=== PATIENT | female | born 2005 | race Caucasian/White ===

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

== ENCOUNTER 2024-04-24 16:00 | Emergency (ER) | payer OTHER ==
[~2024-04-24] VITALS: Ht 154.9 cm; Wt 5.0 kg
[2024-04-24 17:45] LABS: BASOPHILS ABSOLUTE AUTO 0.08 K/mm3 (0.00-0.23); BASOPHILS PERCENT AUTO 1 % (0-2); EOSINOPHILS ABSOLUTE AUTO 0.21 K/mm3 (0.00-0.68); EOSINOPHILS PERCENT AUTO 2 % (0-6); Hematocrit 39.6 % (33.0-51.0); Hemoglobin 13.5 g/dL (11.5-16.0); IMMATURE GRAN ABSOLUTE AUTO 0.02 K/mm3 (0.00-0.10); IMMATURE GRAN PERCENT AUTO 0 % (0-1); LYMPHOCYTES ABSOLUTE AUTO 2.61 K/mm3 (0.84-5.20); LYMPHOCYTES PERCENT AUTO 29 % (21-46); MONOCYTES ABSOLUTE AUTO 0.42 K/mm3 (0.16-1.47); MONOCYTES PERCENT AUTO 5 % (4-13); Mean Corpuscular HGB 29.3 pg (26.0-34.0); Mean Corpuscular HGB Conc 34.1 g/dL (31.5-36.5); Mean Corpuscular Volume 86 fL (80-100); Mean Platelet Volume 10.2 fL (9.1-12.4); NEUTROPHILS ABSOLUTE AUTO 5.71 K/mm3 (1.96-9.15); NEUTROPHILS PERCENT AUTO 63 % (41-73); Platelet Count 290 K/mm3 (150-400); RDW Coefficient Variation 11.5 % (11.7-14.2); RDW Standard Deviation 35.8 fL (35.1-46.3); Red Blood Cell Count 4.61 M/mm3 (3.80-5.20); White Blood Cell Count 9.05 K/mm3 (4.00-11.30)
[2024-04-24 18:15] LABS: Albumin, Blood 3.8 g/dL (3.4-5.0); Albumin/Globulin Ratio 0.9 (0.8-1.8); Bilirubin, Total 0.2 mg/dL (0.1-1.0); Creatinine, Blood 0.67 mg/dL (0.40-1.00); Globulin, Blood 4.3 g/dL (2.2-4.0); Magnesium, Blood 2.2 mg/dL (1.6-2.4); Potassium, Blood 3.6 mmol/L (3.5-5.5); Total Protein, Blood 8.1 g/dL (6.4-8.2)
[2024-04-24 20:03] VITALS: BP 121/87
[2024-04-24] MEDS ORDERED: HyDROXyzine HCl 25 MG Tab PO ONE (20:25)
[2024-04-24] MEDS ORDERED: HYDHCL25 PO (20:25)
== END 2024-04-24 20:40 | disposition home or self-care (01) ==
LOC: ER 16:00
PROVIDERS: Physician Assistant
DX: F44.5 Conversion disorder with seizures or convulsions (principal); F41.1 Generalized anxiety disorder; F41.0 Panic disorder [episodic paroxysmal anxiety]; J45.909 Unspecified asthma, uncomplicated; F17.200 Nicotine dependence, unspecified, uncomplicated
CPT/HCPCS: 80053; 83735; 84703; 85025; A9270

== ENCOUNTER 2025-03-16 01:09 | Emergency (ER) | payer OTHER ==
[~2025-03-16] VITALS: Ht 154.9 cm; Wt 56.7 kg
[~2025-03-16 01:09] MED LIST changes: +HYDHCL25 PO
[2025-03-16 01:33] LABS: Source, Urine Clean Catch
[2025-03-16 01:38] LABS: Bilirubin, Urine Neg (Neg); Color, Urine Yellow (P-Yellow); Glucose Qualitative, Urine Neg (Neg); Ketones, Urine 3+ (Neg); Leukocyte Esterase, Urine 3+ (Neg); Protein, Urine 2+ (Neg); Specific Gravity, Urine 1.025 (1.003-1.022); Urobilinogen, Urine NORM (Normal)
[2025-03-16 01:53] LABS: White Blood Cells, Urine TNTC /hpf (0-5)
[2025-03-16 02:10] LABS: BASOPHILS ABSOLUTE AUTO 0.07 K/mm3 (0.00-0.23); BASOPHILS PERCENT AUTO 1 % (0-2); EOSINOPHILS ABSOLUTE AUTO 0.15 K/mm3 (0.00-0.68); EOSINOPHILS PERCENT AUTO 2 % (0-6); Hematocrit 39.2 % (33.0-51.0); Hemoglobin 12.9 g/dL (11.5-16.0); IMMATURE GRAN ABSOLUTE AUTO 0.02 K/mm3 (0.00-0.10); IMMATURE GRAN PERCENT AUTO 0 % (0-1); LYMPHOCYTES ABSOLUTE AUTO 2.46 K/mm3 (0.84-5.20); LYMPHOCYTES PERCENT AUTO 26 % (21-46); MONOCYTES ABSOLUTE AUTO 0.54 K/mm3 (0.16-1.47); MONOCYTES PERCENT AUTO 6 % (4-13); Mean Corpuscular HGB Conc 32.9 g/dL (31.5-36.5); Mean Corpuscular Volume 89 fL (80-100); NEUTROPHILS ABSOLUTE AUTO 6.11 K/mm3 (1.96-9.15); NEUTROPHILS PERCENT AUTO 65 % (41-73); NRBC ABSOLUTE 0.00 K/mm3 (0.00-0.02); NRBC Auto 0.0 /100 WBC (0.0-0.2); Platelet Count 312 K/mm3 (150-400); RDW Coefficient Variation 12.1 % (11.7-14.2); RDW Standard Deviation 39.2 fL (35.1-46.3)
[2025-03-16 02:16] LABS: Alanine Aminotransfer (ALT/SGP 23.0 U/L (12-78); Albumin, Blood 3.6 g/dL (3.4-5.0); Albumin/Globulin Ratio 0.9 (0.8-1.8); Anion Gap 7.0 mmol/L (3-11); Aspartate Aminotrans (AST/SGOT 13.0 U/L (12-37); Bilirubin, Total 0.2 mg/dL (0.1-1.0); Blood Urea Nitrogen 4.0 mg/dL (8-24); CO2, Blood 28.0 mmol/L (21-32); Calcium, Blood 8.6 mg/dL (8.5-10.1); Chloride, Blood 107.0 mmol/L (98-108); Creatinine, Blood 0.57 mg/dL (0.40-1.00); Globulin, Blood 4.0 g/dL (2.2-4.0); Glucose, Blood 117.0 mg/dL (70-99); Potassium, Blood 2.9 mmol/L (3.5-5.5); Sodium, Blood 139.0 mmol/L (136-145); Total Protein, Blood 7.6 g/dL (6.4-8.2)
[2025-03-16] MEDS ORDERED: CEPH500 PO (02:33)
[2025-03-16 02:54] VITALS: BP 110/71
== END 2025-03-16 02:56 | disposition home or self-care (01) ==
LOC: ER 01:09
PROVIDERS: Emergency Medicine
DX: N39.0 Urinary tract infection, site not specified (principal); E87.6 Hypokalemia; J45.909 Unspecified asthma, uncomplicated; F17.200 Nicotine dependence, unspecified, uncomplicated
CPT/HCPCS: 80053; 81001; 81025; 85025; 99283; A9270

== ENCOUNTER 2025-03-18 21:24 | Emergency (ER) | payer OTHER ==
[~2025-03-18] VITALS: Ht 154.9 cm; Wt 56.7 kg
[~2025-03-18 21:24] MED LIST changes: +CEPH500 PO
[2025-03-18 22:00] VITALS: BP 109/731
== END 2025-03-18 22:43 | disposition home or self-care (01) ==
LOC: ER 21:24
DX: S50.02XA Contusion of left elbow, initial encounter (principal); W22.8XXA Striking against or struck by other objects, initial encounter
CPT/HCPCS: 73080; 99283-25

== ENCOUNTER 2025-03-25 00:08 | Emergency (ER) | payer OTHER ==
[~2025-03-25] VITALS: Ht 154.9 cm; Wt 56.7 kg
[2025-03-25 01:20] VITALS: BP 112/79
[2025-03-25] MEDS ORDERED: Prozac20 MG PO (01:22)
[2025-03-25 01:29] LABS: Source, Urine Clean Catch
[2025-03-25 01:31] LABS: Bilirubin, Urine Neg (Neg); Glucose Qualitative, Urine Neg (Neg); Ketones, Urine 2+ (Neg); Leukocyte Esterase, Urine 3+ (Neg); Protein, Urine 2+ (Neg); Specific Gravity, Urine 1.020 (1.003-1.022); Urobilinogen, Urine NORM (Normal)
[2025-03-25 01:35] LABS: Color, Urine Yellow (P-Yellow)
[2025-03-25 01:39] LABS: White Blood Cells, Urine TNTC /hpf (0-5)
[2025-03-25] MEDS ORDERED: ONDA4ODT MM (02:08)
[2025-03-25] MEDS ORDERED: PHENA200 PO (02:08)
[2025-03-25] MEDS ORDERED: SULTRIDS PO (02:08)
[2025-03-25] MEDS ORDERED: ONDA4 PO (02:08)
[2025-03-25] MEDS ORDERED: Trimethoprim/Sulfamethoxazole DS Tab PO ONE (02:10)
== END 2025-03-25 02:31 | disposition home or self-care (01) ==
LOC: ER 00:08
PROVIDERS: Student in an Organized Health Care Education/Training Program
DX: N39.0 Urinary tract infection, site not specified (principal); J45.909 Unspecified asthma, uncomplicated; Z88.8 Allergy status to other drugs, medicaments and biological substances; F17.200 Nicotine dependence, unspecified, uncomplicated
CPT/HCPCS: 81001; 81025; 87086; 99283; A9270

== ENCOUNTER 2025-04-17 00:23 | Emergency (ER) | payer OTHER ==
[~2025-04-17] VITALS: Ht 154.9 cm; Wt 54.4 kg
[~2025-04-17 00:23] MED LIST changes: +ONDA4 PO; +ONDA4ODT MM; +Prozac20 MG PO
[2025-04-17 01:09] VITALS: BP 114/77
== END 2025-04-17 02:30 | disposition home or self-care (01) ==
LOC: ER 00:23
DX: S60.021A Contusion of right index finger without damage to nail, initial encounter (principal); S60.041A Contusion of right ring finger without damage to nail, initial encounter; S60.051A Contusion of right little finger without damage to nail, initial encounter; W22.8XXA Striking against or struck by other objects, initial encounter; J45.909 Unspecified asthma, uncomplicated; Z79.899 Other long term (current) drug therapy; F17.200 Nicotine dependence, unspecified, uncomplicated
CPT/HCPCS: 73130; 99283-25

== ENCOUNTER 2025-04-29 01:16 | Emergency (ER) | payer OTHER ==
[~2025-04-29] VITALS: Ht 154.9 cm; Wt 54.0 kg
[2025-04-29 02:05] LABS: Source, Urine Clean Catch
[2025-04-29 02:31] LABS: Bilirubin, Urine Neg (Neg); Glucose Qualitative, Urine Neg (Neg); Ketones, Urine 1+ (Neg); Leukocyte Esterase, Urine 1+ (Neg); Protein, Urine 2+ (Neg); Specific Gravity, Urine 1.020 (1.003-1.022); Urobilinogen, Urine NORM (Normal)
[2025-04-29 02:40] LABS: Color, Urine Yellow (P-Yellow)
[2025-04-29 02:41] LABS: Red Blood Cells, Urine 0-2 /hpf (0-2)
[2025-04-29] MEDS ORDERED: Trimethoprim/Sulfamethoxazole DS Tab PO ONE (02:50)
[2025-04-29] MEDS ORDERED: Bactrim Ds Tab1 EACH PO (02:55)
[2025-04-29 03:10] VITALS: BP 118/68
== END 2025-04-29 03:09 | disposition home or self-care (01) ==
LOC: ER 01:16
PROVIDERS: Emergency Medicine
DX: N39.0 Urinary tract infection, site not specified (principal)
CPT/HCPCS: 81001; 87086; 99283; A9270

== ENCOUNTER 2025-07-13 04:05 | Emergency (ER) | payer OTHER ==
[~2025-07-13 04:05] MED LIST changes: +Bactrim Ds Tab1 EACH PO
== END 2025-07-13 04:07 | disposition home or self-care (01) ==
LOC: ER 04:05
DX: Z53.21 Procedure and treatment not carried out due to patient leaving prior to being seen by health care provider (principal)

== ENCOUNTER 2025-08-05 02:15 | Emergency (ER) | payer OTHER ==
[~2025-08-05] VITALS: Ht 154.9 cm; Wt 49.9 kg
[2025-08-05 02:31] VITALS: BP 119/76
[2025-08-05 02:39] LABS: Source, Urine Clean Catch
[2025-08-05 02:45] LABS: Bilirubin, Urine Neg (Neg); Glucose Qualitative, Urine Neg (Neg); Ketones, Urine 1+ (Neg); Leukocyte Esterase, Urine 3+ (Neg); Protein, Urine 2+ (Neg); Specific Gravity, Urine 1.025 (1.003-1.022); Urobilinogen, Urine 2+ (Normal)
[2025-08-05 02:52] LABS: Color, Urine Yellow (P-Yellow)
[2025-08-05 02:53] LABS: Red Blood Cells, Urine 0-2 /hpf (0-2); White Blood Cells, Urine TNTC /hpf (0-5)
[2025-08-05] MEDS ORDERED: CEPH500 PO (03:49)
== END 2025-08-05 04:07 | disposition home or self-care (01) ==
LOC: ER 02:15
PROVIDERS: Student in an Organized Health Care Education/Training Program
DX: N30.00 Acute cystitis without hematuria (principal); J45.909 Unspecified asthma, uncomplicated; F17.200 Nicotine dependence, unspecified, uncomplicated; Z79.899 Other long term (current) drug therapy
CPT/HCPCS: 81001; 81025; 99283; A9270